=== PATIENT | female | born 1990 | race Caucasian/White ===

== ENCOUNTER 2017-07-20 16:51 | Emergency (ER) | payer MEDICAID, OTHER ==
[~2017-07-20] VITALS: Ht 160 cm; Wt 56.2 kg
[2017-07-20 17:04] VITALS: BP 112/81
[2017-07-20] MEDS ORDERED: ONDANSETRON 4 MG TAB ONE (17:35)
[2017-07-20] MEDS ORDERED: ONDANSETRON 4 MG ODT PO ONE (17:35)
[2017-07-20] MEDS ORDERED: ONDANSETRON 4 MG ODT ONE (17:36)
[2017-07-20 17:44] LABS: BASOPHILS # (AUTO) 0.2 K/uL (0.00-0.22); BASOPHILS % (AUTO) 1.7 % (0.0-2.0); EOSINOPHILS # (AUTO) 0.2 K/uL (0-0.4); EOSINOPHILS % (AUTO) 2.1 % (0.0-4.0); HEMATOCRIT 41.7 % (36-48); LYMPHOCYTES # (AUTO) 0.6 K/uL (2.5-16.5); LYMPHOCYTES % (AUTO) 6.3 % (20.5-51.1); MEAN CORPUSCULAR HEMOGLOBIN 32 pg (27-31); MEAN CORPUSCULAR HGB CONC 34 g/dL (33-37); MEAN CORPUSCULAR VOLUME 95 fL (80-94); MONOCYTES # (AUTO) 0.5 K/uL (0.8-1.0); NEUTROPHILS # (AUTO) 7.9 K/uL (1.8-7.7); NEUTROPHILS % (AUTO) 84.9 % (42.2-75.2); PLATELET COUNT (AUTO) 249 K/uL (140-450); RED BLOOD CELL COUNT(AUTO) 4.41 MIL/uL (4.20-5.40); RED CELL DISTRIBUTION WIDTH 12.2 % (11.6-13.7); WHITE BLOOD COUNT (AUTO) 9.4 K/uL (4.8-10.8)
--- NOTE | 2017-07-20 18:00 | NUR ---
PT TAKEN TO BED 3.
--- NOTE | 2017-07-20 18:10 | NUR ---
27/F BIB FRIEND C/O VAGINAL BLEEDING WITH LOWER ABDOMINAL CRAMPING PAIN 6/10 X TODAY. PT HAD SAME S/S 1 WK AGO "CAN'T REMEMBER LMP"; .PT STATED CHANGE 1 PAD TODAY ; SPOT REDNESS. DENIES N/V/D; SKIN IS PINK/WARM/DRY; AAOX4 WITH EVEN AND STEADY GAIT; LUNGS CLEAR BL; PATIENT STATES PAIN OF 6/10 AT THIS TIME; PATIENT POSITIONED FOR COMFORT; HOB ELEVATED; BEDRAILS UP X2; BED DOWN. ER MD MADE AWARE OF PT STATUS.
[2017-07-20 18:45] LABS: APPEARANCE,URINE CLEAR (CLEAR); BILIRUBIN,URINE NEGATIVE (NEGATIVE); BLOOD, URINE 1+ (NEGATIVE); COLOR,URINE YELLOW (YELLOW); LEUKOCYTE ESTERASE ,URINE NEGATIVE (NEGATIVE); NITRITE, URINE NEGATIVE (NEGATIVE); PH,URINE 6.5 (5.0-9.0); UGLUCOSE NEGATIVE (NEGATIVE)
[2017-07-20 18:47] LABS: RBC,URINE 3-10 (FEW) /HPF (0-5); WBC,URINE 0-5 (RARE) /HPF (0-5)
--- NOTE | 2017-07-20 19:15 | NUR ---
Pt report given to LOPEZ FARFAN. Transfer of care at this time.
[2017-07-20 19:45] VITALS: BP 117/71
--- NOTE | 2017-07-20 19:45 | NUR ---
Patient discharged with v/s stable. Written and verbal after care instructions given and explained. Patient verbalized understanding. Ambulatory with steady gait. All questions addressed prior to discharge. Advised to follow up with PMD.
== END 2017-07-20 19:45 | disposition home or self-care (01) ==
LOC: MED 16:51
DX: N93.9 Abnormal uterine and vaginal bleeding, unspecified (principal); R10.30 Lower abdominal pain, unspecified
CPT/HCPCS: 36415; 76817; 81001; 81025; 84702; 85025; 86900; 86901; 87210; 99285; Q0092; Q0162; S0119

== ENCOUNTER 2017-08-25 22:33 | Emergency (ER) | payer MEDICAID ==
[~2017-08-25] VITALS: Ht 160 cm; Wt 55.6 kg
[2017-08-25 22:47] VITALS: BP 134/85
--- NOTE | 2017-08-25 22:51 | NUR ---
PATIENT PRESENTS TO ED WITH follow up of possible threatened miscarriage x1 month . PT DENIES N/V/D; SKIN IS PINK/WARM/DRY; AAOX4 WITH EVEN AND STEADY GAIT; LUNGS CLEAR BL; HR EVEN AND REGULAR; PT DENIES ANY FEVER, CP, SOB, OR COUGH AT THIS TIME; PATIENT STATES PAIN OF 0/10 AT THIS TIME; VSS; PATIENT POSITIONED FOR COMFORT; HOB ELEVATED; BEDRAILS UP X1; BED DOWN. ER MD MADE AWARE OF PT STATUS.
--- NOTE | 2017-08-25 22:51 | NUR ---
PT TO ER BED 1 POST U/S
[2017-08-26 00:11] LABS: HEMOGLOBIN 12.4 g/dL (12.0-16.0); MEAN CORPUSCULAR HEMOGLOBIN 31 pg (27-31); MEAN CORPUSCULAR HGB CONC 33 g/dL (33-37); MEAN CORPUSCULAR VOLUME 92.3 fL (80-94); PLATELET COUNT (AUTO) 244 K/uL (140-450); RED BLOOD CELL COUNT(AUTO) 4.01 MIL/uL (4.20-5.40); RED CELL DISTRIBUTION WIDTH 11.7 % (11.6-13.7); WHITE BLOOD COUNT (AUTO) 4.8 K/uL (4.8-10.8)
[2017-08-26 00:15] LABS: ANION GAP 11.6 (8-16); CARBON DIOXIDE 29.8 mmol/L (21-32); CREATININE 0.5 mg/dL (0.6-1.3); POTASSIUM 4.4 mmol/L (3.5-5.1)
[2017-08-26 00:15] LABS: BILIRUBIN,URINE NEGATIVE (NEGATIVE); BLOOD, URINE 1+ (NEGATIVE); COLOR,URINE YELLOW (YELLOW); LEUKOCYTE ESTERASE ,URINE NEGATIVE (NEGATIVE); NITRITE, URINE NEGATIVE (NEGATIVE); UGLUCOSE NEGATIVE (NEGATIVE)
[2017-08-26 00:29] LABS: EOSINOPHILS % (MANUAL) 8 % (0-4); LYMPHOCYTES % (MANUAL) 53 % (20-46); MONOCYTES % (MANUAL) 13 % (5-12)
[2017-08-26 00:38] LABS: APPEARANCE,URINE SLIGHTLY HAZY (CLEAR)
[2017-08-26 00:42] LABS: RBC,URINE 0-5 (RARE) /HPF (0-5); WBC,URINE 0-5 (RARE) /HPF (0-5)
[2017-08-26 00:53] VITALS: BP 134/85
== END 2017-08-26 00:54 | disposition home or self-care (01) ==
LOC: MED 22:33
DX: Z00.00 Encounter for general adult medical examination without abnormal findings (principal); R03.0 Elevated blood-pressure reading, without diagnosis of hypertension; Z88.2 Allergy status to sulfonamides; Z32.02 Encounter for pregnancy test, result negative
CPT/HCPCS: 36415; 76801; 80048; 81001; 81025; 84702; 85025; 86900; 86901; 99285